=== PATIENT | female | born 1955 | race Caucasian/White ===

== ENCOUNTER → 2022-06-27 13:20 | Outpatient (BNVA) | payer MEDICARE, SELFPAY | PROVIDERS: Family Provider Family Medicine; PCP Family Medicine; Visit Provider Internal Medicine Cardiovascular Disease | DX: I48.91 Unspecified atrial fibrillation (principal); Z79.01 Long term (current) use of anticoagulants; I10 Essential (primary) hypertension; R06.02 Shortness of breath; E03.9 Hypothyroidism, unspecified; M19.90 Unspecified osteoarthritis, unspecified site; Z87.891 Personal history of nicotine dependence | CPT/HCPCS: 99204; Q3014 ==

== ENCOUNTER 2022-07-24 15:02 | Outpatient (CLI) | payer MEDICARE, SELFPAY ==
--- NOTE | 2022-07-24 15:15 | USCV_ITS ---
Kalli Baeza Age: 67 Gender: F : 1955 Exam Date: 07/24/2022 15:34 Ordering Phys: Nahomy Aparicio MD ([email or web address]) Technologist: DAVID Exam Location: [facility] [place] Indication: SHORTNESS OF BREATH BP: 168 / 80 HR: 64 Rhythm: Sinus Technical Quality: Adequate MEASUREMENTS (Male / Female) Normal Values 2D ECHO LVOT Diameter 2.0 cm LV Ejection Fraction MOD 2C 59.6 % LV Ejection Fraction 2C AL 64.4 % LA Diameter 2.8 cm LA Width 3.3 cm LA Height 4.6 cm RA Width 3.0 cm RA Height 4.1 cm Aorta at Sinotubular Diameter 2.5 cm IVC Diameter 1.7 cm M-MODE Aortic Annulus Diameter 3.3 cm LA Ao Ratio MM 0.7 MV E Point Septal Separation 0.6 cm DOPPLER AV Peak Velocity 153.0 cm/s LVOT Peak Velocity 106.0 cm/s AV Area Cont Eq vti 1.9 cm squared AV Area Cont Eq pk 2.1 cm squared MV Peak Velocity 132.0 cm/s MV Area PHT 3.9 cm squared Mitral E to A Ratio 1.0 MV E' Velocity 61.0 cm/s Mitral E to MV E' Ratio 12.8 Mitral E to LV E' Lateral Ratio 12.6 Mitral E to LV E' Septal Ratio 13.1 TR Peak Velocity 207.9 cm/s TR Peak Gradient 17.3 mmHg TR Mean Velocity 167.9 cm/s TR Mean Gradient 11.6 mmHg TR Velocity Time Integral 64.3 cm TV Peak E Velocity 59.0 cm/s Right Atrial Pressure 3.0 mmHg Pulmonary Artery Systolic Pressu 20.3 mmHg PV Peak Velocity 109.0 cm/s RV Acceleration Time 0.1 s RV Ejection Time 0.3 s RV AcT/ET 0.4 FINDINGS Left Ventricle Normal left ventricular size, systolic function and wall thickness, with no regional wall motion abnormalities. Left ventricular ejection fraction is estimated at 60 %. Normal diastolic function. Right Ventricle Normal right ventricular size and systolic function. Right ventricular systolic pressure 20.3 mmHg. Right Atrium Normal right atrial size. Left Atrium Normal left atrial size. Mitral Valve Structurally normal mitral valve. No mitral valve stenosis. Trace mitral valve regurgitation. Aortic Valve Structurally normal trileaflet aortic valve. No aortic valve stenosis. No aortic valve regurgitation. Tricuspid Valve Structurally normal tricuspid valve. No tricuspid valve stenosis. Trace tricuspid valve regurgitation. Pulmonic Valve Structurally normal pulmonic valve. Pericardium No pericardial effusion. Aorta Normal size aortic root and proximal ascending aorta. IVC Normal IVC dimension with >50% respiratory change of the inferior vena cava. CONCLUSIONS 1. Normal left ventricular size, systolic function and wall thickness, with no regional wall motion abnormalities. Left ventricular ejection fraction is estimated at 60 %. Normal diastolic function. 2. No significant valvular abnormality. 3. No prior similar studies to compare. Nahomy Aparicio MD (Electronically Signed) Final Date: 25 July 2022 18:25 S
== END 2022-07-24 15:03 | disposition home or self-care (01) ==
LOC: RAD 15:02
PROVIDERS: PCP Family Medicine; Visit Provider Internal Medicine Cardiovascular Disease
DX: R06.02 Shortness of breath (principal)
CPT/HCPCS: 93306

== ENCOUNTER → 2022-09-20 10:19 | Outpatient (BNVA) | payer MEDICARE, SELFPAY | PROVIDERS: PCP Family Medicine; Visit Provider Nurse Practitioner Family | DX: I48.91 Unspecified atrial fibrillation (principal); I10 Essential (primary) hypertension; Z79.01 Long term (current) use of anticoagulants; Z87.891 Personal history of nicotine dependence | CPT/HCPCS: 99214 ==

== ENCOUNTER → 2022-10-04 09:26 | Outpatient (BNVA) | payer MEDICARE, SELFPAY | PROVIDERS: PCP Family Medicine; Visit Provider Nurse Practitioner Family | DX: L82.1 Other seborrheic keratosis (principal) | CPT/HCPCS: 17004 ==

== ENCOUNTER 2022-10-05 19:59 | Emergency (ER) | payer MEDICARE, SELFPAY ==
[2022-10-05 20:00] VITALS: BP 239/117; PULSE 69; RESP 13; TEMP 36.6; O2SAT 98; BMI 27.4
--- NOTE | 2022-10-05 20:00 | XRR_ITS ---
PROCEDURE INFORMATION: Exam: XR Chest Exam date and time: 10/05/2022 8:07 PM Age: 67 years old Clinical indication: Pain; Chest pressure; Patient HX: PT C/O mild cp that started out worse with HTN. HX of afib TECHNIQUE: Imaging protocol: Radiologic exam of the chest. Views: 1 view. COMPARISON: No relevant prior studies available. FINDINGS: Lungs: Hyperaerated lungs consistent with deep inspiratory effort vs significant reactive airway disease vs [id number] COPD . Pleural spaces: Unremarkable. No pleural effusion. No pneumothorax. Heart/Mediastinum: Unremarkable. No cardiomegaly. Vasculature: Calcification of the thoracic aorta and/or great vessels consistent with atherosclerotic vessel disease. Bones/joints: Dextroscoliosis. Other findings: Patient rotation to the left. XR/XR chest 1V portable [id number] IMPRESSION: Hyperaerated lungs consistent with deep inspiratory effort vs significant reactive airway disease vs [id number] COPD .
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
--- NOTE | 2022-10-05 20:11 | ECG_ITS ---
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 Measurements Intervals [address] [place] Rate: 65 P: 78 GA: 158 QRS: 54 QRSD: 93 T: 63 QT: 409 QTc: 428 Interpretive Statements SINUS RHYTHM POSSIBLE RIGHT VENTRICULAR CONDUCTION DELAY [RSR (QR) IN V1/V2] SEPTAL MYOCARDIAL INFARCTION , OF INDETERMINATE AGE [40+ ms Q WAVE IN V1/V2] No previous ECG available for comparison Electronically Signed On 10-06-2022 16:58:32 CDT by Skip Monahan M.D. [id number]
[2022-10-05 20:29] LABS: Basophils % 0.4 %; Eosinophils # 0.2 10^3/uL (0.0-0.8); Eosinophils % 2.4 %; Hematocrit 40.2 % (37.0-47.0); Lymphocytes # 2.1 10^3/uL (0.8-4.8); Lymphocytes % 21.2 %; Mean Corpuscular HGB Conc 32.3 g/dL (30.0-36.0); Mean Corpuscular Hemoglobin 27.2 pg (28.0-34.0); Mean Corpuscular Volume 84.1 fl (81-99); Mean Platelet Volume 9.9 fL (7.4-10.4); Monocytes # 0.5 10^3/uL (0.2-0.9); Neutrophils # 6.85 10^3/uL (1.8-7.7); Neutrophils % 70.6 %; Nucleated Red Blood Cells % 0 %; Platelet Count 289 10^3/cmm (130-400); Red Blood Count 4.78 10^6/uL (4.1-5.3); Red Cell Distribution Width 13.5 % (12.1-15.1); White Blood Count 9.7 10^3/uL (4.0-10.0)
[2022-10-05] MEDS: LORazepam 2 mg/mL INJ 1 mL 0.5 MG IVP (20:33)
[2022-10-05] MEDS: labetalol 5 mg/mL SDV 20mL 10 MG IVP (20:40)
[2022-10-05 20:44] LABS: Troponin(5th) Baseline 12 ng/L (0-10)
[2022-10-05 20:53] LABS: Alanine Aminotransferase 11 U/L (0-33); Albumin Level 4.3 g/dL (3.5-5.2); Alkaline Phosphatase 97 U/L (35-105); Anion Gap 16.9 (5-19); Aspartate Amino Transferase 14 U/L (0-32); Blood Urea Nitrogen 23 mg/dL (8-23); Calcium 8.9 mg/dL (8.5-10.5); Carbon Dioxide 24 mmol/L (22-29); Chloride 104 mmol/L (98-107); Globulin 2.8 g/dL (1.3-4.6); Glomerular Filtration Rate 40.7 mL/min (90-130); Glucose 97 mg/dL (65-115); NT Pro B Type Natriuretic Pept 421 pg/mL (0-125); Osmolality Calculated 296 mOsm/kg (285-295); Potassium 3.9 mmol/L (3.5-5.1); Sodium 141 mmol/L (136-145); Total Bilirubin 0.4 mg/dL (0.15-1.2); Total Protein 7.1 g/dL (6.6-8.7)
[2022-10-05 22:24] LABS: Troponin 5 2HR 13.16 ng/L (0-10)
[2022-10-05 22:32] LABS: Troponin 5 2HR Delta 1.16 ABS# (0-10)
[2022-10-05 22:39] VITALS: BP 154/88; PULSE 67; RESP 20; O2SAT 97
[2022-10-05 23:17] VITALS: BP 198/94; PULSE 68; RESP 18; O2SAT 98
== END 2022-10-05 23:19 | disposition home or self-care (01) ==
PROVIDERS: Emergency Provider Emergency Medicine; PCP Family Medicine
DX: R07.9 Chest pain, unspecified (principal); I10 Essential (primary) hypertension; Z87.891 Personal history of nicotine dependence
CPT/HCPCS: 71045; 80053; 83880; 84484; 85025; 85610; 93005; 96374; 96375; 99285; J2060; J3490

== ENCOUNTER 2022-10-17 12:58 | Emergency (ER) | payer MEDICARE, SELFPAY ==
[2022-10-17 13:22] VITALS: BP 95/48; PULSE 59; RESP 18; TEMP 36.7; O2SAT 96; BMI 30.7
--- NOTE | 2022-10-17 13:47 | ECG_ITS ---
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 Measurements Intervals [place] Rate: 58 P: 66 SD: 165 QRS: 64 QRSD: 96 T: 66 QT: 436 QTc: 431 Interpretive Statements SINUS BRADYCARDIA POSSIBLE LEFT ATRIAL ENLARGEMENT [-0.1mV P-WAVE IN V1/V2] SEPTAL MYOCARDIAL INFARCTION , OF INDETERMINATE AGE [40+ ms Q WAVE IN V1/V2] Compared to ECG 10/05/2022 20:11:55 Sinus rhythm no longer present Myocardial infarct finding still present Electronically Signed On 10-17-2022 21:02:06 CDT by Skip Monahan M.D. [id number]
--- NOTE | 2022-10-17 13:47 | XRR_ITS ---
PROCEDURE INFORMATION: Exam: XR Chest Exam date and time: 10/17/2022 1:59 PM Age: 67 years old Clinical indication: Cough and dyspnea; Additional info: Dyspnea/cough TECHNIQUE: Imaging protocol: Radiologic exam of the chest. Views: 1 view. COMPARISON: CR (CHEST, ) 10/05/2022 8:07 PM FINDINGS: Lungs: Unremarkable. No consolidation. Pleural spaces: Unremarkable. No pleural effusion. No pneumothorax. Heart/Mediastinum: Unremarkable. No cardiomegaly. Bones/joints: Unremarkable. XR/XR chest 1V portable [id number] IMPRESSION: No acute findings.
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
[2022-10-17 13:59] LABS: Basophils # 0.1 10^3/uL (0.0-0.1); Basophils % 0.7 %; Eosinophils # 0.2 10^3/uL (0.0-0.8); Eosinophils % 2.6 %; Hematocrit 38.5 % (37.0-47.0); Hemoglobin 12.9 g/dL (11.5-15.3); Lymphocytes # 2.1 10^3/uL (0.8-4.8); Mean Corpuscular HGB Conc 33.5 g/dL (30.0-36.0); Mean Corpuscular Hemoglobin 27.3 pg (28.0-34.0); Mean Corpuscular Volume 81.4 fl (81-99); Mean Platelet Volume 9.7 fL (7.4-10.4); Monocytes # 0.5 10^3/uL (0.2-0.9); Monocytes % 7.2 %; Neutrophils # 4.13 10^3/uL (1.8-7.7); Neutrophils % 59.2 %; Nucleated Red Blood Cells % 0 %; Platelet Count 297 10^3/cmm (130-400); Red Blood Count 4.73 10^6/uL (4.1-5.3); Red Cell Distribution Width 13.1 % (12.1-15.1)
[2022-10-17 14:24] LABS: Alanine Aminotransferase 9 U/L (0-33); Alkaline Phosphatase 80 U/L (35-105); Anion Gap 14.6 (5-19); Aspartate Amino Transferase 11 U/L (0-32); Blood Urea Nitrogen 45 mg/dL (8-23); Calcium 10.4 mg/dL (8.5-10.5); Carbon Dioxide 28 mmol/L (22-29); Chloride 96 mmol/L (98-107); Globulin 2.9 g/dL (1.3-4.6); Glomerular Filtration Rate 37.4 mL/min (90-130); Glucose 124 mg/dL (65-115); Lipase 74 U/L (13-60); Osmolality Calculated 293 mOsm/kg (285-295); Potassium 3.6 mmol/L (3.5-5.1); Sodium 135 mmol/L (136-145); Thyroid Stimulating Hormone 2.02 uIU/mL (0.27-4.20); Total Bilirubin 0.8 mg/dL (0.15-1.2); Total Protein 6.9 g/dL (6.6-8.7)
[2022-10-17] MEDS: sodium chloride 0.9% 1,000 ML 999 ML IV (14:41)
[2022-10-17 14:42] LABS: Troponin(5th) Baseline 18 ng/L (0-10)
[2022-10-17 14:44] VITALS: BP 122/72; PULSE 67; O2SAT 97
[2022-10-17 15:49] VITALS: BP 172/77
[2022-10-17 16:29] LABS: Add Urine Microscopic? NO; Charge for UA Resulting for Rev
--- NOTE | 2022-10-17 16:33 | ECG_ITS ---
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 Measurements Intervals [place] Rate: 59 P: 67 SD: 162 QRS: 67 QRSD: 98 T: 69 QT: 431 QTc: 429 Interpretive Statements SINUS BRADYCARDIA SEPTAL MYOCARDIAL INFARCTION , OF INDETERMINATE AGE [40+ ms Q WAVE IN V1/V2] Compared to ECG 10/17/2022 14:16:21 No significant changes Electronically Signed On 10-18-2022 14:10:42 CDT by Aaron Goodwin M.D. [id number]
[2022-10-17 16:38] VITALS: BP 148/71
[2022-10-17 16:38] LABS: Troponin 5 2HR 14.77 ng/L (0-10)
[2022-10-17 16:39] LABS: Troponin 5 2HR Delta -3.23 ABS# (0-10)
[2022-10-17 16:42] LABS: Bilirubin Urine Neg (Negative); Blood Urine Neg (Negative); Glucose Urine UA Norm (Normal); Ketones Urine Negative (Negative); Leukocyte Esterase Urine Negative (Negative); Nitrate Urine Negative (Negative); Protein Urine Neg (Negative); Specific Gravity, Urine 1.005 (1.005-1.030); Urine Appearance Clear (CLEAR); Urine Color Light yellow (Yellow); Urobilinogen Urine Norm (Negative); pH Urine 5 (5-7)
[2022-10-17 16:54] VITALS: BP 120/67; BP 140/76; BP 145/73; PULSE 58; PULSE 60; PULSE 65
== END 2022-10-17 17:47 | disposition home or self-care (01) ==
PROVIDERS: Emergency Provider Family Medicine; PCP Family Medicine
DX: I48.91 Unspecified atrial fibrillation (principal); I10 Essential (primary) hypertension; Z87.891 Personal history of nicotine dependence
CPT/HCPCS: 36415; 71045; 80053; 81003; 83690; 84443; 84484; 85025; 93005; 96360; 96361; 99285; J7030

== ENCOUNTER 2022-10-25 08:10 | Outpatient (CLI) | payer MEDICARE, SELFPAY ==
--- NOTE | 2022-10-25 08:00 | USCV_ITS ---
Kalli Baeza Age: 67 Gender: F : 1955 Exam Date: 10/25/2022 08:29 Ordering Phys: Park Rodriges Technologist: [place] [facility] [place]ication: UNCONTROLLED HTN Aortic Velocity @ SMA (cm/s) 95.6 RIGHT KIDNEY LEFT KIDNEY Velocity (cm/s) Velocity (cm/s) Sys/Morales Sys/Morales Resistive Index Resistive Index 81.8 / 24.9 0.69 Proximal Renal Artery 107.1 / 26.1 0.76 119.2 / 26.3 0.78 Mid Renal Artery 87.9 / 23.3 0.73 130.3 / 27.7 0.79 Distal Renal Artery 116.7 / 30.2 0.74 99.0 / 23.1 0.77 Hilar 63.4 / 14.7 0.77 62.0 / 16.5 0.73 Upper Pole 30.9 / 7.3 0.76 71.9 / 18.2 0.75 Mid Pole 51.0 / 12.0 0.77 66.1 / 14.9 0.78 Lower Pole 44.1 / 10.4 0.76 1.40 Renal Aortic Ratio 1.22 Accleration Index (cm/sec2) 1797.0 Hilar 535.00 0 959.00 Upper Pole 431.00 815.00 Mid Pole 796.00 1503.0 Lower Pole 353.00 0 104.9 Kidney Length (mm) 84.4 FINDINGS No comparisons. No evidence of abdominal aortic aneurysm. There is no evidence of hemodynamically significant right renal artery stenosis. There is no evidence of hemodynamically significant left renal artery stenosis. CONCLUSIONS No evidence of hemodynamically significant renal artery stenosis bilaterally. Dr. Corazon Shelton DO (Electronically Signed) Final Date: 25 Oct 2022 09:43 S
== END 2022-10-25 08:11 | disposition home or self-care (01) ==
PROVIDERS: PCP Family Medicine; Visit Provider Nurse Practitioner Family
DX: I10 Essential (primary) hypertension (principal)
CPT/HCPCS: 93975

== ENCOUNTER → 2022-11-07 08:37 | Outpatient (BNVA) | payer MEDICARE, SELFPAY | PROVIDERS: PCP Family Medicine; Visit Provider Nurse Practitioner Family | DX: L57.0 Actinic keratosis (principal); L82.0 Inflamed seborrheic keratosis; L91.8 Other hypertrophic disorders of the skin; D22.5 Melanocytic nevi of trunk; L57.8 Other skin changes due to chronic exposure to nonionizing radiation; L81.4 Other melanin hyperpigmentation | CPT/HCPCS: 11200; 17000; 17003; 17110; 99213 ==

== ENCOUNTER 2024-01-19 14:45 | Observation (INO) | payer MEDICARE, SELFPAY ==
[2024-01-19] VITALS (28 sets, daily range): BP systolic 74–165; BP diastolic 55–99; PULSE 65–100; RESP 12–31; TEMP 36.4–36.6; O2SAT 96–100; BMI 31.7
--- NOTE | 2024-01-19 14:52 | XRR_ITS ---
PROCEDURE INFORMATION: Exam: XR Chest Exam date and time: 01/19/2024 4:24 PM Age: 68 years old Clinical indication: Chest wall pain; Additional info: SOB TECHNIQUE: Imaging protocol: Radiologic exam of the chest. Views: 1 view. COMPARISON: CR XR chest 1V portable [id number] 10/17/2022 1:59 PM FINDINGS: Lungs: Unremarkable. No consolidation or mass. Pleural spaces: Unremarkable. No pleural effusion. No pneumothorax. Heart/Mediastinum: Unremarkable. No cardiomegaly. Bones/joints: Unremarkable. XR/XR chest 1V portable [id number] IMPRESSION: No acute findings.
--- NOTE | 2024-01-19 15:38 | XRR_ITS ---
PROCEDURE INFORMATION: Exam: XR Right Hip Exam date and time: 01/19/2024 4:29 PM Age: 68 years old Clinical indication: Hip pain; Right hip; Additional info: Fall, pain TECHNIQUE: Imaging protocol: Radiologic exam of the right hip. Views: 1 view hip with pelvis when performed. COMPARISON: No relevant prior studies available. FINDINGS: Bones/joints: Unremarkable. No acute fracture. Soft tissues: Unremarkable. XR/XR hip RT 2-3V wo/w pel* [id number] IMPRESSION: No acute findings.
--- NOTE | 2024-01-19 15:38 | CTR_ITS ---
PROCEDURE INFORMATION: Exam: CT Head Without Contrast Exam date and time: 01/19/2024 4:15 PM Age: 68 years old Clinical indication: Injury or trauma; Fall; Blunt trauma (contusions or hematomas); Without loss of consciousness; Additional info: Pain, fall TECHNIQUE: Imaging protocol: Computed tomography of the head without contrast. Axial, coronal and sagittal reformatted images were created and reviewed. Radiation optimization: All CT scans at this facility use at least one of these dose optimization techniques: automated exposure control; mA and/or kV adjustment per patient size (includes targeted exams where dose is matched to clinical indication); or iterative reconstruction. COMPARISON: CT cervical spin wo con* [id number] 01/19/2024 4:15 PM RADIATION DOSE METRICS: Total DLP (mGy-cm): 1162.3 FINDINGS: Brain: Patchy areas of hypoattenuation in the periventricular and subcortical white matter, consistent with chronic small vessel ischemic disease. No CT evidence of acute intracranial hemorrhage or acute territorial infarction. No significant mass effect or midline shift. Basal cisterns patent. Cerebral ventricles: Prominence of the cortical sulci, cisterns and ventricular system, consistent with cerebral and cerebellar volume loss. Paranasal sinuses: Unremarkable. No fluid levels. Mastoid air cells: Grossly unremarkable. Bones: Unremarkable. No acute fracture. Soft tissues: Grossly unremarkable. Vasculature: Calcific atherosclerotic disease in the cavernous internal carotid arteries. CT/CT head wo con* [id number] IMPRESSION: 1[address] No CT evidence of acute intracranial pathology. 2. Additional findings, as above.
--- NOTE | 2024-01-19 15:38 | XRR_ITS ---
PROCEDURE INFORMATION: Exam: XR Left Shoulder Exam date and time: 01/19/2024 4:25 PM Age: 68 years old Clinical indication: Pain; Upper arm; Left; Additional info: Fall TECHNIQUE: Imaging protocol: Radiologic exam of the left shoulder. Views: 2 or more views. COMPARISON: CR (CHEST, ) 01/19/2024 4:24 PM FINDINGS: Bones/joints: Normal. Soft tissues: Normal. XR/XR shoulder LT min 2V* [id number] IMPRESSION: No acute findings.
--- NOTE | 2024-01-19 15:38 | XRR_ITS ---
PROCEDURE INFORMATION: Exam: XR Right Knee Exam date and time: 01/19/2024 4:27 PM Age: 68 years old Clinical indication: Pain; Knee; Right; Additional info: Fall TECHNIQUE: Imaging protocol: Radiologic exam of the right knee. Views: 3 views. COMPARISON: No relevant prior studies available. FINDINGS: Bones/joints: Prominent bony spurring involves the femoral condyles, tibial plateaus and patella. There is prominent joint space narrowing medially. No fracture or joint effusion noted. Soft tissues: Normal. XR/XR knee RT 3V* [id number] IMPRESSION: Prominent arthritic changes without fracture
--- NOTE | 2024-01-19 15:38 | XRR_ITS ---
PROCEDURE INFORMATION: Exam: XR Right Femur Exam date and time: 01/19/2024 4:32 PM Age: 68 years old Clinical indication: Pain; Hip and knee; Right; Additional info: Fall, pain TECHNIQUE: Imaging protocol: Radiologic exam of the right femur. Views: 2 views. COMPARISON: CR (PELVIS, ) 01/19/2024 4:29 PM FINDINGS: Bones/joints: Prominent arthritic change involves the right knee joint. No fracture noted. Soft tissues: Unremarkable. XR/XR femur RT min 2V* [id number] IMPRESSION: No acute findings.
--- NOTE | 2024-01-19 15:38 | CTR_ITS ---
PROCEDURE INFORMATION: Exam: CT Cervical Spine Without Contrast Exam date and time: 01/19/2024 4:15 PM Age: 68 years old Clinical indication: Injury or trauma; Fall; Blunt trauma; Additional info: Fall, neck pain TECHNIQUE: Imaging protocol: Computed tomography of the cervical spine without contrast. Axial, coronal and sagittal reformatted images were created and reviewed. Radiation optimization: All CT scans at this facility use at least one of these dose optimization techniques: automated exposure control; mA and/or kV adjustment per patient size (includes targeted exams where dose is matched to clinical indication); or iterative reconstruction. COMPARISON: CT head wo con* [id number] 01/19/2024 4:15 PM RADIATION DOSE METRICS: Total DLP (mGy-cm): 518.8 FINDINGS: Bones: Osteopenia. Straightening of the normal cervical lordosis. No CT evidence of acute fracture, dislocation or subluxation. Mild anterolisthesis of C4 on C5. Alignment otherwise anatomic. Vertebral body heights maintained. Mild multilevel degenerative changes, characterized by disc space narrowing, osteophytosis and uncovertebral and facet joint hypertrophy. Mild multilevel spinal canal and neural foraminal narrowing. Thyroid gland: Nodular, likely secondary to goiter. Lungs: Biapical pleural thickening. Soft tissues: Grossly unremarkable. CT/CT cervical spin wo con* [id number] IMPRESSION: 1. No CT evidence of acute cervical spine traumatic injury. 2. Additional findings, as above.
--- NOTE | 2024-01-19 15:43 | ECG_ITS ---
[facility] Test Date: 2024-01-19 Pat Name: Kalli Baeza Department: Room: Gender: Female [employer]: : 1955 Requested By: Sandra Rayo Order Number: [id number] Yanna MD: Morgan Lopez M.D. Measurements Intervals [place] Rate: 69 P: 64 NC: 159 QRS: 64 QRSD: 101 T: 69 QT: 428 QTc: 459 Interpretive Statements SINUS RHYTHM Compared to ECG 10/17/2022 16:33:49 Sinus bradycardia no longer present Myocardial infarct finding no longer present Electronically Signed On 01-19-2024 19:41:25 CDT by oMrgan Lopez M.D. [email or web address]
[2024-01-19] MEDS: fentaNYL 50 mcg/mL INJ 2mL IVP ×2 (16:05→18:25)
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
[2024-01-19 16:13] LABS: Basophils # 0.1 10^3/uL (0.0-0.1); Basophils % 0.4 %; Eosinophils # 0.1 10^3/uL (0.0-0.8); Eosinophils % 0.5 %; Hematocrit 41.9 % (36-47); Lymphocytes # 1.6 10^3/uL (0.8-4.8); Lymphocytes % 13.3 %; Mean Corpuscular HGB Conc 32.9 g/dL (30-55); Mean Corpuscular Hemoglobin 27.6 pg (27-33); Mean Corpuscular Volume 83.8 fl (85-98); Mean Platelet Volume 9.7 fL (7.4-10.4); Monocytes # 0.8 10^3/uL (0.2-0.9); Monocytes % 6.3 %; Neutrophils # 9.51 10^3/uL (1.8-7.7); Neutrophils % 79.2 %; Nucleated Red Blood Cells % 0 %; Platelet Count 325 10^3/cmm (157-399); Red Cell Distribution Width 12.9 % (12.1-15.1); White Blood Count 11.99 10^3/uL (3.29-11.43)
[2024-01-19 16:26] LABS: Lactic Sepsis W/Reflex 1.2 mmol/L (0.5-2.2); Troponin(5th) Baseline 12 ng/L (0-10)
[2024-01-19 16:40] LABS: Alanine Aminotransferase 9 U/L (0-33); Albumin Level 4.1 g/dL (3.5-5.2); Alkaline Phosphatase 95 U/L (35-105); Aspartate Amino Transferase 14 U/L (0-32); Blood Urea Nitrogen 18 mg/dL (8-23); Calcium 9.5 mg/dL (8.5-10.5); Carbon Dioxide 21 mmol/L (22-29); Chloride 94 mmol/L (98-107); Globulin 3.3 g/dL (1.3-4.6); Glucose 117 mg/dL (65-115); Magnesium 2.1 mg/dL (1.7-2.3); Osmolality Calculated 273 mOsm/kg (285-295); Sodium 130 mmol/L (136-145); Thyroid Stimulating Hormone 1.32 uIU/mL (0.27-4.20); Total Bilirubin 1.2 mg/dL (0.15-1.2); Total Protein 7.4 g/dL (6.6-8.7)
[2024-01-19 16:42] LABS: Creatinine Clr Calc Pharmacy 36.6989
[2024-01-19 16:43] LABS: Anion Gap 19.3 (5-19); Potassium 4.3 mmol/L (3.5-5.1)
[2024-01-19] MEDS: sodium chloride 0.9% 1,000 ML 999 ML IV ×2 (16:47→18:25)
--- NOTE | 2024-01-19 17:56 | ECG_ITS ---
[facility] Test Date: 2024-01-19 Pat Name: Kalli Baeza Department: Room: Gender: Female Swatcher: : 1955 Requested By: Sandra Rayo Order Number: [id number] Yanna MD: Morgan Lopez M.D. Measurements Intervals [place] Rate: 96 P: 0 HI: 0 QRS: 59 QRSD: 112 T: 67 QT: 392 QTc: 497 Interpretive Statements ATRIAL FIBRILLATION MODERATE INTRAVENTRICULAR CONDUCTION DELAY [110+ ms QRS DURATION] Compared to ECG 01/19/2024 14:48:16 Intraventricular conduction delay now present Sinus rhythm no longer present Electronically Signed On 01-19-2024 19:42:17 CDT by Morgan Lopez M.D. [email or web address]store/[id number]
[2024-01-19 18:25] LABS: Troponin 5 2HR 8.67 ng/L (0-10); Troponin 5 2HR Delta -3.33 ABS# (0-10)
[2024-01-19 19:05] LABS: Charge for UA Resulting for Rev
[2024-01-19 19:11] LABS: Bilirubin Urine Negative (Negative); Blood Urine Trace (Negative); Glucose Urine UA Negative (Normal); Ketones Urine Negative (Negative); Leukocyte Esterase Urine Negative (Negative); Nitrate Urine Negative (Negative); Protein Urine Negative (Negative); Specific Gravity, Urine 1.005 (1.005-1.030); Urine Appearance Clear (CLEAR); Urine Color Yellow (Yellow); Urobilinogen Urine 0.2 mg/dL (Negative); pH Urine 5.5 (5-7)
[2024-01-19 19:16] LABS: Bacteria Urine None Seen /hpf; Hyaline Casts Urine 3.71 /lpf; RBC Urine 0-2 /hpf (0-2); Squamous Epithelial Cell Urine 0-5 /hpf (0-5); WBC Urine 0-5 /hpf (0-5)
--- NOTE | 2024-01-19 19:26 | ECG_ITS ---
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 Measurements Intervals [place] Rate: 97 P: 0 AL: 0 QRS: 61 QRSD: 94 T: 58 QT: 395 QTc: 503 Interpretive Statements ATRIAL FIBRILLATION Compared to ECG 01/19/2024 17:56:27 Intraventricular conduction delay no longer present Electronically Signed On 01-19-2024 19:42:08 CDT by Morgan Lopez M.D. [email or web address]/[id number]
--- NOTE | 2024-01-19 19:31 | CTR_ITS ---
PROCEDURE INFORMATION: Exam: CT Abdomen And Pelvis With Contrast Exam date and time: 01/19/2024 7:42 PM Age: 68 years old Clinical indication: Abnormal findings; Abnormal lab test; Other: Diarrhea/ulises; Prior surgery; Surgery date: 6+ months; Surgery type: Gb. Hysterectomy. Patient HX: Diarrhea with ulises and elevated wbc. ; Additional info: Diarrhea, dehydration TECHNIQUE: Imaging protocol: Computed tomography of the abdomen and pelvis with contrast. Axial, coronal and sagittal reformatted images were created and reviewed. Radiation optimization: All CT scans at this facility use at least one of these dose optimization techniques: automated exposure control; mA and/or kV adjustment per patient size (includes targeted exams where dose is matched to clinical indication); or iterative reconstruction. Contrast material: OMNI 350; Contrast volume: 80 ml; Contrast route: INTRAVENOUS (IV); COMPARISON: CR (PELVIS, ) 01/19/2024 4:29 PM RADIATION DOSE METRICS: Total DLP (mGy-cm): 789 FINDINGS: Lungs: 4 mm left lower lobe nodular density. Diaphragm: Small hiatal hernia. Liver: Unremarkable. Gallbladder and biliary ducts: Status post cholecystectomy. No biliary ductal dilatation. Pancreas: Unremarkable. Spleen: Coarse calcified splenic granulomata. Coarse calcified splenic granulomata. Adrenal glands: Normal. No mass. Kidneys and ureters: Bilateral renal cysts, measuring up to 2.4 cm on the left (no follow-up is indicated based on the imaging appearance). No radiodense calculi. No hydronephrosis. Stomach and bowel: No bowel wall thickening. No obstruction. No pneumatosis. Appendix: Normal. Intraperitoneal space: No free fluid. No organized fluid collection. No free air. Vasculature: Mild atherosclerotic disease. No aneurysm or dissection. Lymph nodes: No pathologically enlarged lymph nodes. Urinary bladder: Unremarkable as visualized. Reproductive: Status post hysterectomy. Bones/joints: No acute osseous abnormality. Degenerative changes. Soft tissues: Small, fat containing umbilical and supraumbilical hernias. CT/CT abdomen pelvis w con* [id number] [address]: 1. No CT evidence of acute intra-abdominal or pelvic pathology. 2. 4 mm left lower lobe nodular density. For patients at low risk (minimal or absent history of smoking and of other known risk factors), no routine follow-up is indicated. For patients at high risk (history of smoking or of other known risk factors), consider optional CT Chest at 12 months. (Reference: Vadim) 3. Additional findings, as above. COMMENTS: Consistent with the [place] [employer]'s Incidental Findings Committee white paper (J Am Phill Radiol 2018): Any incidental renal lesion less than 1 cm or classified as too small to characterize, or any incidental cystic renal lesion characterized as simple-appearing, is likely benign. No follow-up imaging is recommended for these lesions per consensus recommendations based on imaging criteria. REFERENCES: Vadim Slaughter, et al. Guidelines for Management of Incidental Pulmonary Nodules Detected on CT Images: From the Fleischner Society 2017. Radiology. 2017;284(1):228-243.
[2024-01-19] MEDS: iohexol 350 mg/mL 500 mL Btl (per mL) IV (19:44)
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
[2024-01-19 22:35] LABS: Troponin 5 6HR 8.94 ng/L (0-10)
[2024-01-19 22:36] LABS: Troponin 5 6HR Delta -3.06 ng/L (0-12)
[2024-01-20] VITALS (10 sets, daily range): BP systolic 99–136; BP diastolic 53–72; PULSE 61–106; RESP 16–19; TEMP 36.4–37.2; O2SAT 94–98
--- NOTE | 2024-01-20 02:52 | USCV_ITS ---
Kalli Baeza Age: 68 Gender: F : 1955 Exam Date: 01/20/2024 07:31 Ordering Phys: Selena Frazier MD Technologist: OMEGA [place]am [place] [facility] [place]: Syncope Risk Factors: Previous Vascular Surgery: Right Brachial BP: / Left Brachial BP: / Right Left Velocity (cm/s) Spectral Plaque Velocity (cm/s) Spectral Plaque Syst/Diast Broadening Syst/Diast Broadening 71.10/ 7.90 Prox CCA 73.10 / 8.60 67.20/ 10.20 Mid CCA 46.90 / 9.70 43.60/ 10.80 Distal CCA 46.70 / 14.00 37.60/ 10.20 Prox ICA 55.90 / 14.70 55.30/ 15.60 Mid ICA 56.50 / 16.80 62.10/ 16.60 Distal ICA 74.20 / 21.50 59.00 ECA 85.50 1.40 ICA/CCA 1.60 Antegrade Vertebral Antegrade 43.50/ 13.70 cm/s 44.90/ 14.90 cm/s Tri Subclavian Tri 92.60 132.2 0 CONCLUSIONS Right ICA stenosis <50%. Moderate atheromatous plaque right carotid bulb/ICA. Left ICA stenosis <50%. Moderate atheromatous plaque left carotid bulb/ICA. Intimal thickening in the common carotid arteries and internal carotid arteries bilaterally. Normal antegrade Doppler flow noted in the right vertebral artery. Normal antegrade Doppler flow noted in the left vertebral artery. Сергей Mendosa MD (Electronically Signed) Final Date: 20 January 2024 09:15 S
--- NOTE | 2024-01-20 02:52 | USCV_ITS ---
Kalli Baeza Age: 68 Gender: F : 1955 Exam Date: 01/20/2024 08:38 Ordering Phys: Selena Frazier MD Technologist: CT Exam Location: [facility] – [place] Indication: syncope BP: 111 / 70 HR: 66 Rhythm: Sinus Technical Quality: Adequate MEASUREMENTS (Male / Female) Normal Values 2D ECHO LVOT Diameter 2.1 cm LV Ejection Fraction MOD 4C 68.1 % LV Ejection Fraction MOD 2C 68.5 % LV Ejection Fraction 2C AL 69.0 % LA Diameter 3.8 cm RA Systolic Volume 4C AL 40.7 ml RA Systolic Volume 4C MOD 37.7 ml LA Sys Volume AL 61.1 cm cubed LA Sys Volume Index AL 28.2 cm cubed/m squared Aorta at Sinotubular Diameter 2.5 cm IVC Diameter 1.8 cm M-MODE LA Ao Ratio MM 1.0 AV Cusp Separation MM 1.8 cm DOPPLER AV Peak Velocity 163.0 cm/s LVOT Peak Velocity 115.0 cm/s AV Area Cont Eq vti 3.2 cm squared AV Area Cont Eq pk 2.5 cm squared MV Peak Velocity 145.0 cm/s MV Area PHT 3.3 cm squared Mitral E to A Ratio 1.3 TV Peak Velocity 159.0 cm/s TR Peak Velocity 166.0 cm/s TR Peak Gradient 11.0 mmHg TV Peak E Velocity 88.0 cm/s Right Atrial Pressure 3.0 mmHg Pulmonary Artery Systolic Pressu 14.0 mmHg PV Peak Velocity 114.0 cm/s FINDINGS Left Ventricle Normal left ventricular size, systolic function and wall thickness, with no regional wall motion abnormalities.Estimated ejection fraction is 60% Normal left ventricular wall thickness. Grade II/IV diastolic dysfunction, moderately elevated filling pressures. Right Ventricle The right ventricle is normal in size and function. Right Atrium The right atrium is normal in size. Left Atrium The left atrium is normal in size. Mitral Valve Structurally normal mitral valve without significant stenosis or prolapse. There is mild mitral regurgitation. Aortic Valve Structurally normal aortic valve without significant sclerosis or stenosis. There is mild aortic regurgitation. Tricuspid Valve Structurally normal tricuspid valve without significant stenosis or regurgitation. Pulmonary artery systolic pressure is normal. Pulmonic Valve Structurally normal pulmonic valve without significant stenosis. There is no pulmonic regurgitation. Pericardium Normal pericardium without effusion. Aorta Normal ascending aorta dimension. IVC The inferior vena cava appears normal. CONCLUSIONS 1-Normal left ventricular size, systolic function and wall thickness, with no regional wall motion abnormalities.Estimated ejection fraction is 60% Normal left ventricular wall thickness. Grade II/IV diastolic dysfunction, moderately elevated filling pressures. 2-Structurally normal mitral valve without significant stenosis or prolapse. There is mild mitral regurgitation. 3-Structurally normal aortic valve without significant sclerosis or stenosis. There is mild aortic regurgitation. 4-There is no pericardial effusion. 5-Right atrial pressure is around 5 mm of mercury. Dallas Arenas MD (Electronically Signed) Final Date: 20 January 2024 20:12 S
[2024-01-20 03:18] LABS: NT Pro B Type Natriuretic Pept 2438 pg/mL (0-125)
[2024-01-20] MEDS: flecainide 100 mg Tablet 50 MG PO ×2 (03:30→15:00)
[2024-01-20] MEDS: oxyCODONE-APAP 5-325 mg Tablet 1 TAB PO ×2 (03:30→08:22)
[2024-01-20] MEDS: apixaban 5 mg Tablet 2.5 MG PO ×2 (08:22→16:53)
[2024-01-20] MEDS: pantoprazole DR 40 mg Tablet PO (08:22)
[2024-01-20] MEDS: levothyroxine 88 mcg Tablet PO (08:22)
[2024-01-20] MEDS: carvedilol 12.5 mg Tablet 25 MG PO (08:22)
[2024-01-20 09:28] LABS: Cortisol Random 30.36 ug/dL (2.47-19.5)
--- NOTE | 2024-01-20 11:56 | PM.PN ---
Subjective Subjective: History and physical reviewed. Patient is concerned she may have had a couple of bursts of A-fib. I did not see this on telemetry. In reviewing her history in June she reports extensive cardiac workup including stress test, echocardiogram, event monitor leading to her being placed on flecainide. She reports she also about a month ago had an increase in her carvedilol dose, and has had some dizziness since then. She has had loose stool as well. Medications: Reviewed: Yes Vitals/I&O/Wt Last Vital Signs Temp 98.3 F 01/20/24 08:00 Pulse 67 01/20/24 08:00 Resp 18 01/20/24 08:22 BP 122/72 01/20/24 08:00 Pulse Ox 98 01/20/24 08:22 O2 Del Method Room Air 01/20/24 08:00 01/19/24 01/20/24 01/20/24 22:59 06:59 14:59 Intake Total 1800 / 1800 360 / 360 Balance 1800 / 1800 360 / 360 Weight last 48 hrs Weight 96.162 kg Weight 89.267 kg Weight 86.183 kg Physical Exam Narrative: General Exam no distress Neck is supple Cardiovascular regular rate and rhythm Lungs clear Abdomen soft Extremities no cyanosis clubbing edema Data 01/19/24 15:58 01/19/24 15:58 A&P Assessment and plan (1) Syncope: Patient with significant syncopal event, with loss of bowel control Monitor on telemetry Orthostatic blood pressures twice daily Reduce carvedilol Cardiology consult secondary to significant arrhythmia, 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 Carotids without significant flow-limiting stenosis Echo pending Qualifiers: Syncope type: unspecified Qualified Code(s): R55 - Syncope and collapse (2) Acute hyponatremia: She was hydrated last night Recheck BMP TSH and cortisol normal (3) Acute kidney injury: Continue oral hydration BMP today (4) Hypothyroidism: TSH normal (5) Atrial fibrillation: Patient with history of A-fib, placed on flecainide She is sinus rhythm currently May need event monitor on discharge secondary to syncope (6) Orthostatic hypotension: Orthostatic blood pressures twice daily Reduce carvedilol (7) Knee swelling: Status post fall. X-ray negative. Right knee hurts most. Physical therapy consultation Plan History of longstanding diarrhea, currently better. Patient believed this was due to ARB. C. difficile ordered if diarrhea recurs here. Attestations Medical Necessity Statement*: Needs continued hospitalization, with adjustment of medications, cardiology consultation in this patient with syncopal event which was quite significant. Diagnoses Syncope, unspecified syncope type R55 Syncope type: unspecified Acute hyponatremia E87.1 Acute kidney injury N17.9 Hypothyroidism E03.9 Atrial fibrillation I48.91 Orthostatic hypotension I95.1 Knee swelling M25.469 Time Spent (min) 32
[2024-01-20 12:54] LABS: Anion Gap 13.5 (5-19); Blood Urea Nitrogen 21 mg/dL (8-23); Calcium 8.5 mg/dL (8.5-10.5); Carbon Dioxide 24 mmol/L (22-29); Chloride 103 mmol/L (98-107); Creatinine Clr Calc Pharmacy 47.7415; Glomerular Filtration Rate 40.6 mL/min (90-130); Glucose 127 mg/dL (65-115); Osmolality Calculated 289 mOsm/kg (285-295); Potassium 3.5 mmol/L (3.5-5.1); Sodium 137 mmol/L (136-145)
[2024-01-20] MEDS: sodium chloride 0.9% 500 ML 999 ML IV (17:38)
[2024-01-20] MEDS: sodium chloride 0.9% 1,000 ML 100 ML IV (18:21)
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
[2024-01-21] VITALS (10 sets, daily range): BP systolic 145–185; BP diastolic 68–77; PULSE 60–77; RESP 16–19; TEMP 36.1–36.6; O2SAT 91–98; BMI 34.2
[2024-01-21] MEDS: oxyCODONE-APAP 5-325 mg Tablet 1 TAB PO ×2 (01:11→09:17)
[2024-01-21] MEDS: flecainide 100 mg Tablet 50 MG PO ×2 (03:15→16:02)
[2024-01-21] MEDS: sodium chloride 0.9% 1,000 ML 100 ML IV (03:17)
[2024-01-21 05:29] LABS: Basophils # 0.1 10^3/uL (0.0-0.1); Basophils % 0.6 %; Eosinophils # 0.3 10^3/uL (0.0-0.8); Eosinophils % 4.3 %; Hematocrit 31.5 % (36-47); Lymphocytes # 2.4 10^3/uL (0.8-4.8); Lymphocytes % 30.3 %; Mean Corpuscular HGB Conc 32.7 g/dL (30-55); Mean Corpuscular Hemoglobin 28.5 pg (27-33); Mean Platelet Volume 9.4 fL (7.4-10.4); Monocytes # 0.6 10^3/uL (0.2-0.9); Monocytes % 7.6 %; Neutrophils # 4.49 10^3/uL (1.8-7.7); Neutrophils % 56.9 %; Nucleated Red Blood Cells % 0 %; Platelet Count 235 10^3/cmm (157-399); Red Blood Count 3.62 10^6/uL (3.85-5.65); Red Cell Distribution Width 13.3 % (12.1-15.1); White Blood Count 7.89 10^3/uL (3.29-11.43)
[2024-01-21 05:56] LABS: Alanine Aminotransferase 8 U/L (0-33); Albumin Level 3.4 g/dL (3.5-5.2); Alkaline Phosphatase 71 U/L (35-105); Anion Gap 13.1 (5-19); Aspartate Amino Transferase 16 U/L (0-32); Blood Urea Nitrogen 20 mg/dL (8-23); Calcium 7.7 mg/dL (8.5-10.5); Carbon Dioxide 22 mmol/L (22-29); Chloride 104 mmol/L (98-107); Creatinine Clr Calc Pharmacy 47.7415; Globulin 2.5 g/dL (1.3-4.6); Glomerular Filtration Rate 40.6 mL/min (90-130); Glucose 116 mg/dL (65-115); Osmolality Calculated 284 mOsm/kg (285-295); Potassium 4.1 mmol/L (3.5-5.1); Sodium 135 mmol/L (136-145); Total Bilirubin 0.4 mg/dL (0.15-1.2); Total Protein 5.9 g/dL (6.6-8.7)
--- NOTE | 2024-01-21 08:40 | W.PM.OPSUD ---
Surgery/Procedure H&P Update DATE OF PROCEDURE: January 21, 2024 DATE H&P PERFORMED: 01/21/24 PRIMARY INDICATION FOR PROCEDURE: New onset of heart failure Moderate LV dysfunction PATIENT REASSESSED PRIOR TO SEDATION, WITH NO CHANGE NOTED: Yes AIRWAY EVAL/ANESTHESIA PLAN: normal airway, ASA III, Risks, benefits & alternatives of sedation and/or procedure discussed and Patient agrees to continue as planned ADDITIONAL INFORMATION: Patient has been explained all his benefit and alternative for the procedure. Patient has been explained risk of contrast-induced nephropathy including temporary or permanent dialysis. Patient has been given IV fluid for the last 48 hours
[2024-01-21] MEDS: apixaban 5 mg Tablet 2.5 MG PO (09:17)
[2024-01-21] MEDS: levothyroxine 88 mcg Tablet PO (09:17)
[2024-01-21] MEDS: pantoprazole DR 40 mg Tablet PO (09:17)
[2024-01-21] MEDS: carvedilol 12.5 mg Tablet PO (09:17)
--- NOTE | 2024-01-21 11:09 | PM.DCS ---
Discharge Providers Date of Admission: 01/19/24 19:41 Date of Discharge: January 21, 2024 Attending Provider at Admission: Selena Frazier MD Attending Provider at Discharge: Duran Bolden MD Primary Care Provider: Nidhi Garcia DO Diagnoses at Discharge Discharge Diagnosis (1) Syncope: Status: Acute Qualifiers: Syncope type: unspecified Qualified Code(s): R55 - Syncope and collapse (2) Acute kidney injury: Status: Acute (3) Orthostatic hypotension: Status: Acute (4) Atrial fibrillation: Status: Acute Reason for Visit Reason for Visit: fall, sob Hospital Course Hospital Course Patient presented to the hospital with an episode of syncope. She has a past history of paroxysmal atrial fibrillation, hypertension and within the last month had an increase in her carvedilol dosing. She also relates significant diarrhea. On arrival to the hospital she was in A-fib, but rate controlled. She was hypotensive, hyponatremic, and had some evidence of renal failure. CT scans demonstrated no fracture, no intracranial event. She was given hydration, carvedilol dose reduced, telemetry monitoring. She was initially orthostatic which resolved. Renal function improved significantly. No rapid ventricular rate was noted on telemetry or significant arrhythmias. 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 By the time of discharge she was feeling much better, able to ambulate without difficulty or getting dizzy. Blood pressure medication had been restarted, at lower dose and systolic blood pressure is 1 50-1 70. Will plan to have her continue carvedilol at 12.5 mg twice daily, follow-up with her primary care in 3 to 5 days with a CBC and BMP. Further additions/increase of blood pressure medication may be needed. She did not have any recurrent diarrhea in the hospital so no testing could be done regarding this. Consideration for outpatient GI follow-up could occur as she has past history of some chronic diarrhea. Apixaban dose was increased to 5 mg twice daily, to prevent CVA. She did have some mild anemia noted in the hospital following her initial hemoglobins. This is likely delusional and from blood draws but can also be followed up as an outpatient. Carotid Doppler showed no flow-limiting stenosis. Abdominal pelvis CT did show 4 mm left lower lobe nodular density, and with patient's at low risk no significant follow-up was recommended but this can be discussed further at her primary care provider visit. Echo was also performed demonstrating normal EF, grade 2/4 diastolic dysfunction. She was able to ask questions, and agreed with the plan. Physical Exam Narrative: General Exam no distress Neck is supple Cardiovascular irregular, irregular Lungs clear Abdomen is soft Extremities no cyanosis clubbing or edema Discharge Data Studies Completed and Pending Completed Studies During Hospitalization Category Date Time Status CT abdomen pelvis w con* [id number] Stat Cat Scan 01/19/24 19:[address] cervical spin wo con* [id number] Stat Cat Scan 01/19/24 15:[address] head wo con* [id number] Stat Cat Scan 01/19/24 15:38 Completed CXRP [XR chest 1V portable [id number]] Stat Exams 01/19/24 14:52 Completed XR femur RT min 2V* [id number] Stat Exams 01/19/24 15:38 Completed XR hip RT 2-3V wo/w pel* [id number] Stat Exams 01/19/24 15:38 Completed XR knee RT 3V* [id number] Stat Exams 01/19/24 15:38 Completed XR shoulder LT min 2V* [id number] Stat Exams 01/19/24 15:38 Completed CV carotid duplex BI* [id number] Routine Ultrasound 01/20/24 02:52 Completed CV. echo complete* [id number] Routine Ultrasound 01/20/24 02:52 Completed Pending at discharge Category Date Time Status CDIFF [C.Diff PCR (Lab)] Routine Lab 01/20/24 01:25 Uncollected Radiology Impressions Chest X-Ray 01/19/24 14:52 IMPRESSION: No acute findings. Cervical Spine CT 01/19/24 15:38 IMPRESSION: 1. No CT evidence of acute cervical spine traumatic injury. 2. Additional findings, as above. Femur X-Ray 01/19/24 15:38 IMPRESSION: No acute findings. Head CT 01/19/24 15:38 IMPRESSION: 1. No CT evidence of acute intracranial pathology. 2. Additional findings, as above. Hip/Pelvis X-Ray 01/19/24 15:38 IMPRESSION: No acute findings. Knee X-Ray 01/19/24 15:38 IMPRESSION: Prominent arthritic changes without fracture Shoulder X-Ray 01/19/24 15:38 IMPRESSION: No acute findings. Abdomen/Pelvis CT 01/19/24 19:31 IMPRESSION: 1. No CT evidence of acute intra-abdominal or pelvic pathology. 2. 4 mm left lower lobe nodular density. For patients at low risk (minimal or absent history of smoking and of other known risk factors), no routine follow-up is indicated. For patients at high risk (history of smoking or of other known risk factors), consider optional CT Chest at 12 months. (Reference: Vadim) 3. Additional findings, as above. COMMENTS: Consistent with the [employer]'s Incidental Findings Committee white paper (J Am Phill Radiol 2018): Any incidental renal lesion less than 1 cm or classified as too small to characterize, or any incidental cystic renal lesion characterized as simple-appearing, is likely benign. No follow-up imaging is recommended for these lesions per consensus recommendations based on imaging criteria. REFERENCES: Vadim Slaughter, et al. Guidelines for Management of Incidental Pulmonary Nodules Detected on CT Images: From the Fleischner Society 2017. Radiology. 2017;284(1):228-243. Laboratory Results WBC 7.89 10^3/uL (3.29-11.43) 01/21/24 04:50 RBC 3.62 10^6/uL (3.85-5.65) L 01/21/24 04:50 Hgb 10.30 g/dL (11.27-16.99) L 01/21/24 04:50 Hct 31.5 % (36-47) L 01/21/24 04:50 MCV 87.0 fl (85-98) 01/21/24 04:50 MCH 28.5 pg (27-33) 01/21/24 04:50 MCHC 32.7 g/dL (30-55) 01/21/24 04:50 RDW 13.3 % (12.1-15.1) 01/21/24 04:50 Plt Count 235 10^3/cmm (157-399) 01/21/24 04:50 MPV 9.4 fL (7.4-10.4) 01/21/24 04:50 Neut % (Auto) 56.9 % 01/21/24 04:50 Lymph % (Auto) 30.3 % 01/21/24 04:50 [place] % (Auto) 7.6 % 01/21/24 04:50 Eos % (Auto) 4.3 % 01/21/24 04:50 Baso % (Auto) 0.6 % 01/21/24 04:50 Neut # (Auto) 4.49 10^3/uL (1.8-7.7) 01/21/24 04:50 Lymph # (Auto) 2.4 10^3/uL (0.8-4.8) 01/21/24 04:50 [place] # (Auto) 0.6 10^3/uL (0.2-0.9) 01/21/24 04:50 Eos # (Auto) 0.3 10^3/uL (0.0-0.8) 01/21/24 04:50 Baso # (Auto) 0.1 10^3/uL (0.0-0.1) 01/21/24 04:50 Nucleated RBC % (auto) 0 % 01/21/24 04:50 Nucleated RBCs # 0.0 /100WBC 01/21/24 04:50 Sodium 135 mmol/L (136-145) L 01/21/24 04:50 Potassium 4.1 mmol/L (3.5-5.1) 01/21/24 04:50 Chloride 104 mmol/L (98-107) 01/21/24 04:50 Carbon Dioxide 22 mmol/L (22-29) 01/21/24 04:50 Anion Gap 13.1 (5-19) 01/21/24 04:50 BUN 20 mg/dL (8-23) 01/21/24 04:50 Creatinine 1.3 mg/dL (0.5-0.9) H 01/21/24 04:50 GFR Calculation 40.6 mL/min (90-130) L 01/21/24 04:50 Glucose 116 mg/dL (65-115) H 01/21/24 04:50 Calculated Osmolality 284 mOsm/kg (285-295) L 01/21/24 04:50 Lactic Acid 1.2 mmol/L (0.5-2.2) 01/19/24 15:58 Calcium 7.7 mg/dL (8.5-10.5) L 01/21/24 04:50 Magnesium 2.1 mg/dL (1.7-2.3) 01/19/24 15:58 Total Bilirubin 0.4 mg/dL (0.15-1.2) 01/21/24 04:50 AST 16 U/L (0-32) 01/21/24 04:50 ALT 8 U/L (0-33) 01/21/24 04:50 Alkaline Phosphatase 71 U/L (35-105) 01/21/24 04:50 Troponin T Baseline 12 ng/L (0-10) H 01/19/24 15:58 Troponin T 120 Minute 8.67 ng/L (0-10) 01/19/24 17:47 Delta Troponin T -3.33 ABS# (0-10) L 01/19/24 17:47 Troponin T Hi Sens 6Hr 8.94 ng/L (0-10) 01/19/24 22:13 Troponin T Hi Sens 6Hr Delta -3.06 ng/L (0-12) L 01/19/24 22:13 NT-Pro-B Natriuret Pep 2438 pg/mL (0-125) H 01/19/24 22:13 Total Protein 5.9 g/dL (6.6-8.7) L 01/21/24 04:50 Albumin 3.4 g/dL (3.5-5.2) L 01/21/24 04:50 Globulin 2.5 g/dL (1.3-4.6) 01/21/24 04:50 TSH 1.32 uIU/mL (0.27-4.20) 01/19/24 15:58 Random Cortisol 30.36 ug/dL (2.47-19.5) H 01/19/24 15:58 Urine Color Yellow (Yellow) 01/19/24 18:53 Urine Appearance Clear (CLEAR) 01/19/24 18:53 Urine pH 5.5 (5-7) 01/19/24 18:53 Ur Specific [place] 1.005 (1.005-1.030) 01/19/24 18:53 Urine Protein Negative (Negative) 01/19/24 18:53 Urine Glucose (UA) Negative (Normal) 01/19/24 18:53 Urine Ketones Negative (Negative) 01/19/24 18:53 Urine Blood Trace (Negative) A 01/19/24 18:53 Urine Nitrate Negative (Negative) 01/19/24 18:53 Urine Bilirubin Negative (Negative) 01/19/24 18:53 Urine Urobilinogen 0.2 mg/dL (Negative) 01/19/24 18:53 Ur Leukocyte Esterase Negative (Negative) 01/19/24 18:53 Urine RBC 0-2 /hpf (0-2) 01/19/24 18:53 Urine WBC 0-5 /hpf (0-5) 01/19/24 18:53 Ur Squamous Epith Cells 0-5 /hpf (0-5) 01/19/24 18:53 Amorphous Sediment Not Reportable 01/19/24 18:53 Urine Bacteria None seen /hpf (NONE) 01/19/24 18:53 Hyaline Casts 3.71 /lpf 01/19/24 18:53 Vitals Last Vital Signs Temp 97.5 F L 01/21/24 11:07 Pulse 63 01/21/24 11:07 Resp 19 H 01/21/24 11:07 BP 170/73 01/21/24 11:07 Pulse Ox 91 01/21/24 11:07 O2 Del Method Room Air 01/21/24 11:07 Discharge Plan Discharge Patient Disposition: Home Condition: Stable Prescriptions: New pantoprazole 40 mg Tablet,Delayed Release (Dr/Ec) 40 mg PO DAILY Qty: 30 0RF carvedilol 12.5 mg Tablet 12.5 mg PO BID Qty: 60 0RF Continued levothyroxine 88 mcg tablet 88 mcg PO DAILY clonidine HCl 0.1 mg tablet 0.1 mg PO BID PRN (Reason: Blood Pressure) flecainide 50 mg Tablet 50 mg PO Q12H Changed apixaban 5 mg tablet 5 mg PO BID Qty: 60 0RF Discontinued carvedilol 12.5 mg tablet 25 mg PO BID Rx Instructions: must administer with a meal/food Discharge Orders: Discharge Order (Routine); Ordered 01/21/24 Ordered By: Duran Bolden Referrals: Dallas Arenas MD [Physician] - 2 weeks (Follow-up atrial fibrillation) Nidhi Garcia DO [Primary Care Provider] - 4-7 days (CBC, BMP on follow-up) Discharge Diet: Cardiac Discharge Activity: Increase activity as tolerated Patient Instructions: Opioid Safety Activity Restrictions/Additional Instructions: Take all medicine as prescribed Follow-up with your primary care provider in 3 to 5 days with CBC and BMP Follow-up with cardiology in 2 weeks Keep track of your blood pressures, in the morning resting as well as at night for your appointments Return for any concerns Discharge Attestations Time Spent in Discharge Care*: greater than 30 min Quality Metrics Clinical Quality Measures [ No reported AMI, CVA or VTE this stay] Coding Level of Care Code 58110 Total time (in minutes) for Discharge: 37 Diagnoses Syncope, unspecified syncope type R55 Syncope type: unspecified Acute kidney injury N17.9 Orthostatic hypotension I95.1 Atrial fibrillation I48.91
== END 2024-01-21 16:46 | disposition home or self-care (01) ==
LOC: ER 19:19 → MEDSURG 20:55
PROVIDERS: Emergency Medicine; Admitting Provider Student in an Organized Health Care Education/Training Program; Emergency Provider Emergency Medicine; PCP Family Medicine; Visit Provider Internal Medicine
DX: I95.1 Orthostatic hypotension (principal); N17.9 Acute kidney failure, unspecified; I48.0 Paroxysmal atrial fibrillation; I10 Essential (primary) hypertension; E03.9 Hypothyroidism, unspecified; M19.90 Unspecified osteoarthritis, unspecified site; Z87.891 Personal history of nicotine dependence; Z91.81 History of falling
CPT/HCPCS: 36415; 70450; 71045; 72125; 73030; 73502; 73552; 73562; 74177; 80048; 80053; 81003; 81015; 82533; 83605; 83735; 83880; 84443; 84484; 85025; 93005; 93306; 93880; 96361; 96374; 96376; 97116; 97162; 97530; 99285; G0378; J3010; J7030; J7040; Q9967

== ENCOUNTER → 2024-01-30 14:55 | Outpatient (BNVA) | payer MEDICARE, SELFPAY | PROVIDERS: PCP Family Medicine; Visit Provider Nurse Practitioner Family | DX: R55 Syncope and collapse (principal); Z87.891 Personal history of nicotine dependence | CPT/HCPCS: 99213 ==

== ENCOUNTER → 2024-02-25 07:56 | Outpatient (BNVA) | payer MEDICARE, SELFPAY | PROVIDERS: PCP Family Medicine; Visit Provider Student in an Organized Health Care Education/Training Program | DX: M17.0 Bilateral primary osteoarthritis of knee | CPT/HCPCS: 73560; 73565; 99204 ==

== ENCOUNTER 2024-02-25 09:36 | Outpatient (CLI) | payer MEDICARE, SELFPAY | END 2024-02-25 09:37 | disposition home or self-care (01) | LOC: SPT 10:03 | PROVIDERS: PCP Family Medicine; Visit Provider Student in an Organized Health Care Education/Training Program | DX: Z46.89 Encounter for fitting and adjustment of other specified devices (principal); M17.11 Unilateral primary osteoarthritis, right knee | CPT/HCPCS: 97760; L1851 ==

== ENCOUNTER → 2024-03-16 08:47 | Outpatient (BNVA) | payer MEDICARE, SELFPAY | PROVIDERS: PCP Family Medicine; Visit Provider Internal Medicine Cardiovascular Disease | DX: I48.11 Longstanding persistent atrial fibrillation (principal); I10 Essential (primary) hypertension; Z87.891 Personal history of nicotine dependence; Z79.01 Long term (current) use of anticoagulants | CPT/HCPCS: 99213 ==

== ENCOUNTER → 2024-04-29 13:30 | Outpatient (BNVA) | payer MEDICARE, SELFPAY | PROVIDERS: PCP Family Medicine; Visit Provider Nurse Practitioner Family | DX: I10 Essential (primary) hypertension (principal); I48.11 Longstanding persistent atrial fibrillation; Z87.891 Personal history of nicotine dependence | CPT/HCPCS: 99213 ==

== ENCOUNTER → 2024-09-14 15:12 | Outpatient (BNVA) | payer MEDICARE, SELFPAY | PROVIDERS: PCP Family Medicine; Visit Provider Internal Medicine Cardiovascular Disease | DX: I48.11 Longstanding persistent atrial fibrillation (principal); Z79.01 Long term (current) use of anticoagulants; I10 Essential (primary) hypertension; Z87.891 Personal history of nicotine dependence | CPT/HCPCS: 99214 ==

== ENCOUNTER → 2024-10-20 14:11 | Outpatient (BNVA) | payer MEDICARE, SELFPAY | PROVIDERS: PCP Family Medicine; Visit Provider Student in an Organized Health Care Education/Training Program | DX: M17.0 Bilateral primary osteoarthritis of knee (principal); M25.561 Pain in right knee; M25.562 Pain in left knee | CPT/HCPCS: 73560; 73565; 99213 ==

== ENCOUNTER → 2024-11-11 10:12 | Outpatient (BNVA) | payer MEDICARE, SELFPAY | PROVIDERS: PCP Nurse Practitioner Family; Visit Provider Physician Assistant | DX: M17.0 Bilateral primary osteoarthritis of knee (principal) | CPT/HCPCS: 20610; 99213; J3301; J9999 ==